=== PATIENT | female | born 2000 | race African-American/Black ===

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

== ENCOUNTER 2022-05-22 15:00 | Emergency (ER) | payer MEDICAID ==
[~2022-05-22] VITALS: Ht 160 cm; Wt 95.0 kg
[~2022-05-22 15:00] MED LIST: TOPUD MT
[2022-05-22] MEDS ORDERED: CEPH500T MT (16:39)
[2022-05-22] MEDS ORDERED: LIDOCAINE HCL/PF 1% 10 MG/ML 5ML VIAL INFIL ONE (16:45)
[2022-05-22] MEDS ORDERED: BACITRACIN ZINC OINT UDPKT TOP ONE (16:45)
[2022-05-22] MEDS ORDERED: IBUPROFEN 600MG TABLET PO ONE (16:45)
[2022-05-22] MEDS ORDERED: HYDROCODONE/ACETAMINOPHEN 5/325MG TABLET PO ONE (17:45)
[2022-05-22 18:02] VITALS: BP 117/77
[2022-05-22] MEDS ORDERED: SULF1TAB48 MT (18:05)
== END 2022-05-22 18:27 | disposition home or self-care (01) ==
LOC: ER 15:00
DX: L05.01 Pilonidal cyst with abscess (principal); Z98.890 Other specified postprocedural states
CPT/HCPCS: 10060; 81025; 99283; J3490; Z7610

== ENCOUNTER 2024-04-10 16:54 | Emergency (ER) | payer MEDICAID ==
[~2024-04-10] VITALS: Ht 157.5 cm; Wt 92.0 kg
[~2024-04-10 16:54] MED LIST changes: +SULF1TAB48 MT
[2024-04-10 17:03] VITALS: O2SAT 100
[2024-04-10] MEDS ORDERED: ACETAMINOPHEN 325MG TABLET PO ONE (19:00)
[2024-04-10] MEDS: HYDROCODONE/ACETAMINOPHEN 5/325MG TABLET PO ONE (20:08)
[2024-04-10 21:03] VITALS: BP 112/67; PULSE 87; RESP 18; TEMP 36.94740; O2SAT 100
== END 2024-04-10 21:22 | disposition home or self-care (01) ==
LOC: ER 16:54
DX: S92.532A Displaced fracture of distal phalanx of left lesser toe(s), initial encounter for closed fracture (principal); Z98.890 Other specified postprocedural states; W20.8XXA Other cause of strike by thrown, projected or falling object, initial encounter; Y93.89 Activity, other specified; Y92.89 Other specified places as the place of occurrence of the external cause; Y99.8 Other external cause status
CPT/HCPCS: 73660; 99283; Z7610

== ENCOUNTER 2025-02-20 10:42 | Emergency (ER) | payer OTHER, MEDICAID ==
[~2025-02-20] VITALS: Ht 157.5 cm; Wt 93.0 kg
[2025-02-20 10:46] VITALS: O2SAT 100
[2025-02-20 11:55] LABS: HEMATOCRIT. 30.0 % (36.0-48.0); HEMOGLOBIN. 10.0 g/dL (12.0-16.0); MEAN PLATELET VOLUME 10.1 fl (7.4-10.4); PLATELET 323 x1000/uL (130-400); RED BLOOD CELL COUNT 3.50 mill/uL (4.2-5.4); RED CELL DISTRIBUTION WIDTH 12.5 % (11.6-14.6)
[2025-02-20 12:08] LABS: INR 0.9
[2025-02-20 12:09] LABS: CREATININE 0.5 mg/dL (0.6-1.0); UREA NITROGEN BLOOD 5 mg/dL (9-23)
[2025-02-20 12:11] LABS: ASPARTATE AMINOTRANSFERASE 29 IU/L (<34); BILIRUBIN DIRECT < 0.1 mg/dL (<=3.0)
[2025-02-20 12:12] LABS: BILIRUBIN TOTAL 0.3 mg/dL (0.1-1.0); PROTEIN TOTAL 7.1 g/dL (6.0-8.3)
[2025-02-20 12:24] LABS: B-HCG QUANTITATIVE 9492 mIU/mL (<6)
[2025-02-20 12:25] LABS: BASOPHILS % MANUAL 1.0 % (0.0-2.0); LYMPHOCYTES % MANUAL 7.0 % (20.0-60.0); MONOCYTES % MANUAL 3.0 % (2.0-8.0); NEUTROPHILS % MANUAL 89.0 % (45.0-75.0)
[2025-02-20 12:26] LABS: PLATELET ESTIMATE NORMAL
[2025-02-20 13:19] VITALS: BP 128/80; PULSE 101; RESP 16; TEMP 36.6; O2SAT 100
[2025-02-22 04:08] LABS: HSV TYPE 2 SPECIFIC AB IGG Non Reactive (Non Reactive)
== END 2025-02-20 13:22 | disposition left against medical advice (07) ==
LOC: ER 10:42 → CANBEDREQ 12:08 → ER 13:22
DX: O9A.212 Injury, poisoning and certain other consequences of external causes complicating pregnancy, second trimester (principal); O26.892 Other specified pregnancy related conditions, second trimester; S00.12XA Contusion of left eyelid and periocular area, initial encounter; Z98.890 Other specified postprocedural states; Z3A.27 27 weeks gestation of pregnancy; V43.52XA Car driver injured in collision with other type car in traffic accident, initial encounter; Y93.89 Activity, other specified; Y92.410 Unspecified street and highway as the place of occurrence of the external cause; Y99.8 Other external cause status
CPT/HCPCS: 36415; 76815; 80048; 80076; 80320; 83735; 84702; 85025; 86592; 86695; 86696; 86850; 86900; 87340; 99284; G0480